=== PATIENT | male | born 1995 | race Caucasian/White ===

== ENCOUNTER 2018-02-26 18:22 | Emergency (ER) | payer BC ==
[2018-02-26 18:44] VITALS: RESP 20; TEMP 98.7
[2018-02-26 20:26] LABS: Appearance,Urine Clear (Clear); Bilirubin,Urine Negative (Negative); Blood,Urine Negative (Negative); Color,Urine Yellow; Glucose,Urine (UA) Negative (Negative); Ketones,Urine 3+ (Negative); Leukocyte Esterase,Urine Negative (Negative); Nitrite,Urine Negative (Negative); Protein,Urine Trace (Negative); Specific Gravity,Urine 1.025 (1.001-1.035)
[2018-02-26 20:39] LABS: Amphetamine Screen,Urine Not Detected (NotDetected); Barbiturate Screen,Urine Not Detected (NotDetected); Benzodiazepines Screen,Urine Not Detected (NotDetected); Cocaine Screen,Urine Not Detected (NotDetected); Methadone Screen, Urine Not Detected (NotDetected); Opiate Screen,Urine Not Detected (NotDetected); Oxycodone Screen, Urine Not Detected (NotDetected); Phencyclidine Screen,Urine Not Detected (NotDetected); Tricyclic Antidepressant,Urine Not Detected (NotDetected); Urn Cannabinoid Scrn Detected (NotDetected)
--- NOTE | 2018-02-26 20:40 | ED ---
General Adult HPI - General Source: patient, RN notes reviewed, old records reviewed Mode of arrival: ambulatory Limitations: no limitations <Navarro Smiley - Last Filed: 02/26/18 23:45> <Guanakito Castillo - Last Filed: 02/27/18 01:10> - General Chief complaint: Head Injury Stated complaint: head injury, altered mental status - History of Present Illness Initial comments: 22-year-old male patient with no pertinent past medical history presents to ED for 2 complaints. Patient reportedly had a fall on Monday which she sustained a loss of consciousness. Patient reports that at times for his smoking marijuana but denies any other drug usage or alcohol. Patient reports a loss of consciousness during this fall. Patient is not able to provide any more details about the fall. Secondary complaint which patient presents to ER for is approximately 3 months of withdrawing from friends and family, delusions, paranoia. Additionally patient denied any suicidal or homicidal ideations, however after further questioning he stated that he does have suicidal ideations. Patient does not have any documented psychiatric history. Patient denies all other complaints. Systemic: Pt denies fatigue, myalgia, fever/chills, rash. Pt denies weakness, night sweats, weight loss. Neuro: Pt denies headache, visual disturbances, syncope or pre-syncope. HEENT: Pt denies ocular discharge or irritation, otalgia, rhinorrhea, pharyngitis or notable lymphadenopathy. Cardiopulmonary: Pt denies chest pain, acute SOB, heart palpitations, dyspnea on exertion. Abdominal/GI: Pt denies abdominal pain, n/v/d. : Pt denies dysuria, burning w/ urination, frequency/urgency. Denies new onset urinary or bowel incontinence. MSK: Pt denies myalgia, loss of strength or function in extremities. Neuro: Pt denies new onset weakness, paresthesias. (Navarro Smiley) - Related Data Home Medications Medication Instructions Recorded Confirmed No Known Home Medications 02/26/18 02/26/18 Allergies Allergy/AdvReac Type Severity Reaction Status Date / Time cashew nut Allergy Verified 02/26/18 20:51 nut - unspecified Allergy Verified 02/26/18 20:51 peas Allergy Verified 02/26/18 20:51 strawberry Allergy Verified 02/26/18 20:51 Review of Systems ROS Other: All systems not noted in ROS Statement are negative. <Navarro Smiley - Last Filed: 02/26/18 23:45> ROS Other: All systems not noted in ROS Statement are negative. <Guanakito Castillo - Last Filed: 02/27/18 01:10> ROS Statement: Those systems with pertinent positive or pertinent negative responses have been documented in the HPI. Past Medical History Past Medical History: No Reported History History of Any Multi-Drug Resistant Organisms: None Reported Past Surgical History: Appendectomy Additional Past Surgical History / Comment(s): wisdom teeth Past Psychological History: No Psychological Hx Reported Smoking Status: Current every day smoker Past Alcohol Use History: Occasional Past Drug Use History: Marijuana <Navarro Smiley - Last Filed: 02/26/18 23:45> General Exam Limitations: no limitations <Navarro Smiley - Last Filed: 02/26/18 23:45> <Guanakito Castillo - Last Filed: 02/27/18 01:10> - General Exam Comments Initial Comments: Constitutional: NAD, AOX3, Pt has pleasant affect. HEENT: NC/AT, trachea midline, neck supple, no lymphadenopathy. Posterior pharynx non erythematous, without exudates. External ears appear normal, without discharge. Mucous membranes moist. Eyes PERRLA, EOM intact. There is no scleral icterus. No pallor noted. Cardiopulmonary: RRR, no murmurs, rubs or gallops, no JVD noted. Lungs CTAB in anterior and posterior bunn. No peripheral edema. Abdominal exam: Abdomen soft and non-distended. Abdomen non-tender to palpation in all 4 quadrants. Bowel sounds active in LLQ. No hepatosplenomegaly. No ecchymosis Neuro: CN II-XII intact. No nuchal rigidity. No cervical spinal tenderness. MSK: No posterior calf tenderness bilaterally, homans sign negative bilaterally. Posterior tibialis and radial pulse +2 bilaterally. Sensation intact in upper and lower extremities. Full active ROM in upper and lower extremities, 5/5 stregnth. (Navarro Smiley) Course <Navarro Smiley - Last Filed: 02/26/18 23:45> <Guanakito Castillo - Last Filed: 02/27/18 01:10> Vital Signs 02/26/18 18:37 Temperature 98.7 F Pulse Rate 99 Respiratory 20 Rate Blood Pressure 139/86 O2 Sat by Pulse 100 Oximetry - Reevaluation(s) Reevaluation #1: 02/27/18 00:16 I did fill out a clinical certificate on the patient.. [id number] evaluation was performed. (Guanakito Castillo) Reevaluation #2: 02/27/18 01:09 The patient is pending possible transfer for inpatient treatment of acute psychosis. I did endorse this patient to Dr. Pisano at our shift change. (Guanakito Castillo) Medical Decision Making <Navarro Smiley - Last Filed: 02/26/18 23:45> - Lab Data Result diagrams: 02/27/18 00:30 02/27/18 00:30 <Guanakito Castillo - Last Filed: 02/27/18 01:10> - Medical Decision Making 22-year-old male patient with no pertinent past medical history presents to ED for 2 complaints. Patient reportedly had a fall on Monday which she sustained a loss of consciousness. Patient reports that at times for his smoking marijuana but denies any other drug usage or alcohol. Patient reports a loss of consciousness during this fall. Patient is not able to provide any more details about the fall. Secondary complaint which patient presents to ER for is approximately 3 months of withdrawing from friends and family, delusions, paranoia. Initially patient denied any suicidal or homicidal ideations, however after further questioning he stated that he does have suicidal ideations. Patient does not have any documented psychiatric history. Patient denies all other complaints. Physical exam did not display acute pathology. Neuro exam within normal limits. CT brain and c spine without contrast displayed any acute process. EPS was contacted and independently evaluated patient. EPS recommended admission. Additionally EPS recommended petition and cert. Dr. Calabrese performed petition. UA revealed +3 ketones. UA revealed + THC. CBC and CMP pending. Patient to be admitted and eventually transferred. Case discussed in depth with Dr. Calabrese. (Navarro Smiley) - Lab Data Lab Results 02/26/18 02/27/18 02/27/18 Range/Units 20:10 00:30 00:30 WBC 7.5 (3.8-10.6) k/uL RBC 5.53 (4.30-5.90) m/uL Hgb 15.8 (13.0-17.5) gm/dL Hct 48.1 (39.0-53.0) % MCV 87.0 (80.0-100.0) fL MCH 28.6 (25.0-35.0) pg MCHC 32.9 (31.0-37.0) g/dL RDW 12.6 (11.5-15.5) % Plt Count 294 (150-450) k/uL Neutrophils % 62 % Lymphocytes % 26 % Monocytes % 8 % Eosinophils % 1 % Basophils % 1 % Neutrophils # 4.6 (1.3-7.7) k/uL Lymphocytes # 2.0 (1.0-4.8) k/uL Monocytes # 0.6 (0-1.0) k/uL Eosinophils # 0.1 (0-0.7) k/uL Basophils # 0.0 (0-0.2) k/uL Sodium 145 (137-145) mmol/L Potassium 5.1 (3.5-5.1) mmol/L Chloride 103 (98-107) mmol/L Carbon Dioxide 27 (22-30) mmol/L Anion Gap 15 mmol/L BUN 12 (9-20) mg/dL Creatinine 0.98 (0.66-1.25) mg/dL Est GFR (CKD-EPI)AfAm >90 (>60 ml/min/1.73 sqM) Est GFR (CKD-EPI)NonAf >90 (>60 ml/min/1.73 sqM) Glucose 96 (74-99) mg/dL Calcium 10.7 H (8.4-10.2) mg/dL Total Bilirubin 0.7 (0.2-1.3) mg/dL AST 22 (17-59) U/L ALT 22 (21-72) U/L Alkaline Phosphatase 56 (38-126) U/L Total Protein 9.1 H (6.3-8.2) g/dL Albumin 5.5 H (3.5-5.0) g/dL Urine Color Yellow Urine Appearance Clear (Clear) Urine pH 6.0 (5.0-8.0) Ur Specific [place] 1.025 (1.001-1.035) Urine Protein Trace H (Negative) Urine Glucose (UA) Negative (Negative) Urine Ketones 3+ H (Negative) Urine Blood Negative (Negative) Urine Nitrite Negative (Negative) Urine Bilirubin Negative (Negative) Urine Urobilinogen 2.0 (<2.0) mg/dL Ur Leukocyte Esterase Negative (Negative) Urine Opiates Screen Not Detected (NotDetected) Ur Oxycodone Screen Not Detected (NotDetected) Urine Methadone Screen Not Detected (NotDetected) Ur Propoxyphene Screen Not Detected (NotDetected) Ur Barbiturates Screen Not Detected (NotDetected) U Tricyclic Antidepress Not Detected (NotDetected) Ur Phencyclidine Scrn Not Detected (NotDetected) Ur Amphetamines Screen Not Detected (NotDetected) U Methamphetamines Scrn Not Detected (NotDetected) U Benzodiazepines Scrn Not Detected (NotDetected) Urine Cocaine Screen Not Detected (NotDetected) U Marijuana (THC) Screen Detected H (NotDetected) Disposition Is patient prescribed a controlled substance at d/c from ED?: No Time of Disposition: 23:43 <Navarro Smiley - Last Filed: 02/26/18 23:45> <Guanakito Castillo - Last Filed: 02/27/18 01:10> Clinical Impression: Psychiatric disturbance Disposition: ADMITTED IP TO THIS HOSP Condition: Fair Referrals: None,Stated [Primary Care Provider] - 1-2 days
--- NOTE | 2018-02-26 20:42 | CT ---
EXAMINATION TYPE: CT brain niko [facility]odge DATE OF EXAM: 02/26/2018 COMPARISON: None HISTORY: 22-year-old male fall, head injury, confusion and pain CT DLP: 1355 mGycm Automated exposure control for dose reduction was used. Technique: Examination of the head was done in axial plane without intravenous contrast. Coronal and sagittal reconstructions performed. CT of the cervical spine was obtained in axial plane without intravenous injection of contrast mater ial. Coronal and sagittal reformatted images were obtained from the axial views for evaluation of f ractures, spinal alignment and canal. FINDINGS: Head: There is no evidence of acute intracranial hemorrhage, acute ischemic changes, mass, mass-effect, or extra-axial fluid collection. There is no effacement of cerebral sulci or basal subarachnoid cister ns. There is no hydrocephalus. There is no midline shift. Maldonado-white matter distinction is preserv ed. Paranasal sinuses and mastoid air cells well pneumatized. Orbits and globes are intact. No calvarial fracture. Cervical spine: The alignment of the cervical spine is normal on coronal and reformatted images. There is no cranial vertebral abnormality. Fracture of the cervical spine is not seen. Assessment of the spinal canal fro m C7-T1 and below is limited due to artifact from the patient's shoulders. Reversal of the normal cer vical lordosis. There is no evidence of focal disk herniation. There is no central spinal canal steno sis along the visualized levels. Sagittal and coronal reformatted images confirm above findings. COMBINED IMPRESSION: 1. No acute intracranial abnormality seen. 2. No acute fracture or malalignment of the cervical spine. Reversal of the normal cervical lordosis could be positional or due to muscle spasm.
[2018-02-27 00:43] LABS: Basophils % (A) 1 %; Eosinophils # (A) 0.1 k/uL (0-0.7); Eosinophils % (A) 1 %; HCT 48.1 % (39.0-53.0); HGB 15.8 gm/dL (13.0-17.5); Lymphocytes % (A) 26 %; MCH 28.6 pg (25.0-35.0); MCHC 32.9 g/dL (31.0-37.0); Mean Platelet Volume 6.9; Monocytes # (A) 0.6 k/uL (0-1.0); Monocytes % (A) 8 %; Neutrophils # (A) 4.6 k/uL (1.3-7.7); Neutrophils % (A) 62 %; Platelet Count 294 k/uL (150-450); RBC 5.53 m/uL (4.30-5.90); RDW 12.6 % (11.5-15.5); WBC 7.5 k/uL (3.8-10.6)
[2018-02-27 00:52] LABS: ALT 22 U/L (21-72); AST 22 U/L (17-59); Albumin 5.5 g/dL (3.5-5.0); Alkaline Phosphatase 56 U/L (38-126); Anion Gap 15 mmol/L; Blood Urea Nitrogen 12 mg/dL (9-20); Calcium 10.7 mg/dL (8.4-10.2); Carbon Dioxide 27 mmol/L (22-30); Chloride 103 mmol/L (98-107); Glucose 96 mg/dL (74-99); Potassium 5.1 mmol/L (3.5-5.1); Sodium 145 mmol/L (137-145); Total Bilirubin 0.7 mg/dL (0.2-1.3); Total Protein 9.1 g/dL (6.3-8.2)
[2018-02-27 02:14] VITALS: BP 128/91; PULSE 79
[2018-02-27] MEDS ORDERED: LORazepam 1 MG TAB PO STA (08:24)
== END 2018-02-27 08:36 | disposition other institution (70) ==
LOC: EC 18:22
DX: F99 Mental disorder, not otherwise specified (principal); R45.851 Suicidal ideations; F17.200 Nicotine dependence, unspecified, uncomplicated; Z91.018 Allergy to other foods; Z91.010 Allergy to peanuts
CPT/HCPCS: 36415; 70450; 72125; 80053; 80306; 81003; 82075; 85025; 99285